=== PATIENT | female | born 1980 | race Caucasian/White ===

== ENCOUNTER 2021-07-27 07:53 | Outpatient (CLI) | payer OTHER | END 2021-07-27 23:59 | disposition home or self-care (01) | LOC: LAB.N 07:53 | PROVIDERS: ATTEND Registered Nurse | DX: U07.1 COVID-19 (principal) | CPT/HCPCS: 87275; 87276 ==

== ENCOUNTER 2022-04-04 09:30 | Outpatient (CLI) | payer OTHER ==
[2022-04-04 13:04] LABS: RESPIRATORY SYNCYTIAL VIRUS Negative (Negative)
== END 2022-04-04 09:31 | disposition home or self-care (01) ==
LOC: LAB.N 09:30
PROVIDERS: ATTEND Registered Nurse
DX: J06.9 Acute upper respiratory infection, unspecified (principal); Z20.822 Contact with and (suspected) exposure to COVID-19
CPT/HCPCS: 87275; 87276; 87280